=== PATIENT | male | born 1945 | race Caucasian/White ===

== ENCOUNTER 2019-03-04 23:04 | Emergency (ER) | payer MEDICARE, BC ==
[2019-03-05 00:01] LABS: Bilirubin Negative (Negative); Blood, Urine Negative (Negative); Clarity CLEAR (Clear); Glucose, Urine (Dipstick) >=1000 mg/dL (Negative); Leukocyte Negative (Negative); Nitrite Negative (Negative); Protein, Urine (Dipstick) Negative (Neg-Trace); Specific Gravity, Urine 1.035 (1.002-1.036)
[2019-03-05] MEDS ORDERED: Morphine 4 MG/ML VIAL ONE (00:34)
[2019-03-05 01:11] LABS: ALT (SGPT) 14 U/L (8-55); AST (SGOT) 12 U/L (5-34); Albumin 4.1 g/dL (3.4-4.8); Alkaline Phosphatase 67 U/L (40-150); Anion Gap 11 mmol/L (10-20); BUN (Urea Nitrogen) 29 mg/dL (8.4-25.7); Bilirubin, Total 0.5 mg/dL (0.2-1.2); Calc. Creatinine Clearance 0 mL/min (70-130); Calcium 9.8 mg/dL (7.8-10.44); Carbon Dioxide 25 mmol/L (23-31); Chloride 103 mmol/L (98-107); Estimated GFR-MDRD 44; Globulin 2.9 g/dL (2.4-3.5); Glucose 253 mg/dL (83-110); Potassium 4.4 mmol/L (3.5-5.1); Sodium 135 mmol/L (136-145)
[2019-03-05] MEDS ORDERED: Ketorolac Tromethamine 30 MG/ML VIAL ONE (01:58)
[2019-03-05] MEDS ORDERED: Diazepam 5 MG TAB ONE (02:01)
--- NOTE | 2019-03-05 07:46 | CT ---
PRELIMINARY REPORT/[facility]/EMERGENCY AFTER HOURS PROCEDURE EXAM: CT Abdomen and Pelvis With Contrast EXAM DATE/TIME: 03/05/2019 1:18 AM CLINICAL HISTORY: 73 years old, male; Patient HX: Er 13. , 73m presenting with right lower back pain x 1 month with rad iation down right leg. TECHNIQUE: Imaging protocol: Axial computed tomography images of the abdomen and pelvis with intravenous contras t. Coronal and sagittal reformatted images were created and reviewed. COMPARISON: No relevant prior studies available. FINDINGS: Lungs: There is bibasilar subsegmental atelectasis or parenchymal scarring. ABDOMEN: Liver: There are a few calcified hepatic granulomata. There is mild hepatomegaly. Gallbladder and bile ducts: Normal. No calcified stones. No ductal dilation. Pancreas: Normal. No ductal dilation. Spleen: Normal. No splenomegaly. Adrenals: Normal. No mass. Kidneys and ureters: Normal. No hydronephrosis. Stomach and bowel: There is colonic diverticulosis without evidence for acute diverticulitis. Appendix: The appendix is unremarkable and seen best on axial image 60 of series 2. PELVIS: Bladder: Unremarkable as visualized. Reproductive: There are prostate gland calcifications. ABDOMEN and PELVIS: Intraperitoneal space: Normal. No free air. No significant fluid collection. Bones/joints: There is diffuse osteopenia and there are degenerative changes of the spine. Soft tissues: Unremarkable. Vasculature: There are atherosclerotic aortic and iliac and femoral artery calcifications. Lymph nodes: Normal. No enlarged lymph nodes. IMPRESSION: There is colonic diverticulosis without evidence for acute diverticulitis. Thank you for allowing us to participate in the care of your patient. Dictated and Authenticated by: Oneil Dickerson MD 03/05/2019 2:46 AM Central Time ([place] & [place]) FINAL REPORT CT ABDOMEN AND PELVIS WITH IV CONTRAST AND CT LUMBAR SPINE WITHOUT CONTRAST PERFORMED ON AN EMERGENCY BASIS: 03/05/2019 0120 HOURS HISTORY: Abdomen pain with low back pain. FINDINGS: I agree with the preliminary report by Dr. Dickerson from [facility]. Prominent atherosclerosis. No acute vascular abnormalities are apparent. Diverticulosis without jessica dence of diverticulitis. No acute compression fracture of the lumbar spine evident. Degenerative changes are pronounced. Napoleon tral canal and foraminal stenoses, most pronounced at the L3-L4 level. Severe stenosis also involves the left neural foramen, at the L4-L5 level. CODE QA
== END 2019-03-05 03:00 | disposition home or self-care (01) ==
LOC: ERS 23:04
DX: M54.41 Lumbago with sciatica, right side (principal); E11.9 Type 2 diabetes mellitus without complications; I10 Essential (primary) hypertension; E03.9 Hypothyroidism, unspecified; E78.00 Pure hypercholesterolemia, unspecified; F32.9 Major depressive disorder, single episode, unspecified; Z79.82 Long term (current) use of aspirin; Z79.4 Long term (current) use of insulin; Z79.02 Long term (current) use of antithrombotics/antiplatelets; Z79.899 Other long term (current) drug therapy
CPT/HCPCS: 74177; 80053; 81003; 96374; 96375; J1885; J2270

== ENCOUNTER 2021-03-02 14:43 | Inpatient (IN) | payer MEDICARE, BC ==
[2021-03-02 15:22] LABS: #Lymphocytes 1.8 thou/uL (1.20-3.40); #Monocytes 0.7 thou/uL (0.11-0.59); #Neutrophils 7.5 thou/uL (1.40-6.50); %Eosinophils 0.4 % (0.0-10.0); %Lymphocytes 17.8 % (21.0-51.0); %Monocytes 6.9 % (0.0-10.0); Hemoglobin 13.7 g/dL (14.0-18.0); Mean Corpuscular HGB CONC 32.3 g/dL (32.0-36.0); Mean Corpuscular Volume 92.8 fL (78.0-98.0); Mean Platelet Volume 8.7 fL (7.4-10.4); Platelet Count 274 thou/uL (130-400); RBC Distribution Width 13.7 % (11.5-14.5); Red Blood Cell (RBC) Count 4.57 mill/uL (4.70-6.10)
[2021-03-02 15:36] LABS: ALT (SGPT) 17 U/L (8-55); AST (SGOT) 14 U/L (5-34); Albumin 4.1 g/dL (3.4-4.8); Alkaline Phosphatase 76 U/L (40-110); Anion Gap 21 mmol/L (10-20); BUN (Urea Nitrogen) 39 mg/dL (8.4-25.7); Bilirubin, Total 0.4 mg/dL (0.2-1.2); Calc. Creatinine Clearance 0 mL/min (70-130); Calcium 10.4 mg/dL (7.8-10.44); Carbon Dioxide 27 mmol/L (23-31); Chloride 93 mmol/L (98-107); Globulin 3.8 g/dL (2.4-3.5); Glucose 519 mg/dL (83-110); Potassium 4.9 mmol/L (3.5-5.1); Protein, Total 7.9 g/dL (5.8-8.1); Sodium 136 mmol/L (136-145)
[2021-03-02] MEDS ORDERED: Azithromycin 500 MG VIAL ONE (18:31)
[2021-03-02] MEDS ORDERED: Dextrose 5% in Water 1,000 ML IV PRN (18:57)
[2021-03-02] MEDS ORDERED: Dextrose 50% Abboject 50 ML SYRINGE SLOW IVP PRN (18:57)
[2021-03-02] MEDS ORDERED: Doxycycline 100 MG CAP PO SCH (19:00)
[2021-03-02] MEDS ORDERED: Enoxaparin Sodium 40 MG/0.4 ML SYRINGE SC SCH (19:00)
[2021-03-02 19:11] LABS: Lactic Acid 2.1 mmol/L (0.5-2.2)
[2021-03-02 19:34] LABS: Hemoglobin A1c 8.6 % (4.0-6.0)
[2021-03-02 19:44] LABS: Actual Bicarbonate (HCO3v) 30 mEq/L (22-28); Analyzer IN Cardio ER; Base Excess 4.8 mEq/L (-2.0 to +3.0); Calcium, Ionized (venous) 1.13 mmol/L (1.16-1.32); Chloride (VBG) 98 mmol/L (98-106); Potassium (VBG) 4.51 mmol/L (3.70-5.30); pH (venous) 7.42 (7.32-7.43)
[2021-03-02 19:45] LABS: Troponin I Less than 0.010 ng/mL (< 0.028)
[2021-03-02 19:47] LABS: Cardiac Risk 5.4 (Less than 4.5)
[2021-03-02] MEDS ORDERED: Enoxaparin Sodium 40 MG/0.4 ML SYRINGE ONE (21:46)
[2021-03-02] MEDS ORDERED: methylPREDNISolone Sod Succ 40 MG VIAL ONE (21:46)
[2021-03-02] MEDS: methylPREDNISolone Sod Succ 40 MG VIAL IVP SCH (21:57)
[2021-03-02 22:00] VITALS: BMI 31.7
[2021-03-02 22:21] LABS: Troponin I Less than 0.010 ng/mL (< 0.028)
[2021-03-03] MEDS ORDERED: methylPREDNISolone Sod Succ 40 MG VIAL ONE ×2 (02:47→08:40)
[2021-03-03] MEDS: methylPREDNISolone Sod Succ 40 MG VIAL IVP SCH ×4 (02:53→20:21)
[2021-03-03] MEDS ORDERED: Aspirin Chewable 81 MG TAB ONE (08:39)
[2021-03-03] MEDS ORDERED: Lisinopril 10 MG TAB ONE (08:39)
[2021-03-03] MEDS ORDERED: Clopidogrel Bisulfate 75 MG TAB ONE (08:39)
[2021-03-03] MEDS ORDERED: Enoxaparin Sodium 40 MG/0.4 ML SYRINGE ONE (08:40)
[2021-03-03] MEDS: Clopidogrel Bisulfate 75 MG TAB PO SCH (09:15)
[2021-03-03] MEDS: metFORMIN 500 MG TAB PO SCH ×2 (09:15→16:35)
[2021-03-03] MEDS: Aspirin 81 mg Enteric Coated Tablet PO SCH (09:15)
[2021-03-03] MEDS: Lisinopril 10 MG TAB PO SCH (09:16)
[2021-03-03] MEDS: Enoxaparin Sodium 40 MG/0.4 ML SYRINGE SC SCH (09:16)
[2021-03-03] MEDS ORDERED: HumaLOG 300 UNITS/3 ML VIAL ONE (09:22)
[2021-03-03] MEDS: HumaLOG 300 UNITS/3 ML VIAL SC PRN ×2 (09:24→16:34)
[2021-03-03] MEDS: Lantus 1000 UNITS/10 ML VIAL SC SCH (09:25)
[2021-03-03 09:31] LABS: Anion Gap 15 mmol/L (10-20); BUN (Urea Nitrogen) 36 mg/dL (8.4-25.7); Calc. Creatinine Clearance 53 mL/min (70-130); Calcium 9.8 mg/dL (7.8-10.44); Carbon Dioxide 28 mmol/L (23-31); Chloride 96 mmol/L (98-107); Glucose 440 mg/dL (83-110); Potassium 4.9 mmol/L (3.5-5.1); Sodium 134 mmol/L (136-145)
[2021-03-03 11:37] LABS: SARS-CoV-2 PCR by NAA Not Detected (NotDetected)
[2021-03-03] MEDS: Acetylcysteine 20% 200 MG/ML 30 ML VIAL INH SCH ×2 (15:00→19:32)
[2021-03-03] MEDS ORDERED: HumaLOG 300 UNITS/3 ML VIAL SC PRN (20:49)
[2021-03-03] MEDS ORDERED: Rosuvastatin 10 MG TAB PO SCH (21:00)
[2021-03-04] MEDS: methylPREDNISolone Sod Succ 40 MG VIAL IVP SCH ×2 (01:43→08:25)
[2021-03-04] MEDS: Acetylcysteine 20% 200 MG/ML 30 ML VIAL INH SCH ×2 (02:11→07:27)
[2021-03-04] MEDS ORDERED: Levothyroxine Sodium 25 MCG TAB PO SCH (06:00)
[2021-03-04] MEDS: HumaLOG 300 UNITS/3 ML VIAL SC PRN ×2 (06:16→11:24)
[2021-03-04 08:05] LABS: Anion Gap 12 mmol/L (10-20); BUN (Urea Nitrogen) 35 mg/dL (8.4-25.7); Calc. Creatinine Clearance 60 mL/min (70-130); Calcium 9.7 mg/dL (7.8-10.44); Carbon Dioxide 29 mmol/L (23-31); Chloride 99 mmol/L (98-107); Glucose 264 mg/dL (83-110); Potassium 4.8 mmol/L (3.5-5.1); Sodium 135 mmol/L (136-145)
[2021-03-04] MEDS: metFORMIN 500 MG TAB PO SCH (08:25)
[2021-03-04] MEDS: Aspirin 81 mg Enteric Coated Tablet PO SCH (08:25)
[2021-03-04] MEDS: Lisinopril 10 MG TAB PO SCH (08:25)
[2021-03-04] MEDS: Clopidogrel Bisulfate 75 MG TAB PO SCH (08:25)
[2021-03-04] MEDS: Lantus 1000 UNITS/10 ML VIAL SC SCH (08:26)
[2021-03-04] MEDS: Enoxaparin Sodium 40 MG/0.4 ML SYRINGE SC SCH (08:26)
[2021-03-04 11:33] VITALS: BP 159/71; TEMP 97.6
== END 2021-03-04 12:01 | disposition home health service (06) | DRG 189 ==
LOC: ERS 14:43 → ERHOLD 18:30 → 2NO 03-03 13:24
PROVIDERS: ADMIT Internal Medicine; ATTEND Internal Medicine
DX: J96.20 Acute and chronic respiratory failure, unspecified whether with hypoxia or hypercapnia (principal); I13.0 Hypertensive heart and chronic kidney disease with heart failure and stage 1 through stage 4 chronic kidney disease, or unspecified chronic kidney disease; Z20.822 Contact with and (suspected) exposure to COVID-19; J44.1 Chronic obstructive pulmonary disease with (acute) exacerbation; E66.01 Morbid (severe) obesity due to excess calories; E11.22 Type 2 diabetes mellitus with diabetic chronic kidney disease; E11.65 Type 2 diabetes mellitus with hyperglycemia; E78.00 Pure hypercholesterolemia, unspecified; E03.9 Hypothyroidism, unspecified; I50.9 Heart failure, unspecified; F32.9 Major depressive disorder, single episode, unspecified; I25.10 Atherosclerotic heart disease of native coronary artery without angina pectoris; E78.5 Hyperlipidemia, unspecified; N18.30 Chronic kidney disease, stage 3 unspecified; Z86.74 Personal history of sudden cardiac arrest; Z95.1 Presence of aortocoronary bypass graft; Z88.0 Allergy status to penicillin; Z79.82 Long term (current) use of aspirin; Z79.890 Hormone replacement therapy; Z79.4 Long term (current) use of insulin; Z79.899 Other long term (current) drug therapy; Z87.891 Personal history of nicotine dependence; Z99.81 Dependence on supplemental oxygen; Z68.31 Body mass index [BMI] 31.0-31.9, adult
CPT/HCPCS: 36415; 36416; 71045; 80048; 80053; 80061; 82010; 82805; 83036; 83605; 83880; 84484; 85025; 87040; 87070; 87205; 87631; 87804; 94640; 94667; 94668; 96365; 96366; J0132; J0456; J1650; J1815; J1956; J2920; J7620; U0003; U0005

== ENCOUNTER 2021-09-11 14:50 | Emergency (ER) | payer MEDICARE, BC ==
[2021-09-11] MEDS ORDERED: Ondansetron PF 4 MG/2 ML Vial ONE (16:51)
[2021-09-11] MEDS ORDERED: Morphine 4 MG/ML VIAL ONE (16:51)
[2021-09-11 17:25] LABS: #Basophils 0.1 thou/uL (0.0-0.2); #Eosinphils 0.2 thou/uL (0.0-0.7); #Lymphocytes 1.9 thou/uL (1.20-3.40); #Monocytes 0.9 thou/uL (0.11-0.59); #Neutrophils 5.2 thou/uL (1.40-6.50); %Basophils 0.6 % (0.0-1.0); %Lymphocytes 23.1 % (21.0-51.0); %Monocytes 10.8 % (0.0-10.0); %Neutrophils 63.4 % (42.0-75.0); Hemoglobin 12.4 g/dL (14.0-18.0); Mean Corpuscular HGB CONC 34.1 g/dL (32.0-36.0); Mean Corpuscular Hemoglobin 31.1 pg (27.0-31.0); Mean Corpuscular Volume 91.4 fL (78.0-98.0); Mean Platelet Volume 7.9 fL (7.4-10.4); Platelet Count 219 thou/uL (130-400); RBC Distribution Width 13.6 % (11.5-14.5); Red Blood Cell (RBC) Count 3.98 mill/uL (4.70-6.10); White Blood Cell (WBC) Count 8.1 thou/uL (4.8-10.8)
[2021-09-11 17:29] LABS: Bilirubin Negative (Negative); Blood, Urine Negative (Negative); Clarity Clear (Clear); Glucose, Urine (Dipstick) Greater than 1000 mg/dL (Negative); Ketone, Urine Negative (Negative); Leukocyte Negative Leu/uL (Negative); Nitrite Negative (Negative); Protein, Urine (Dipstick) Negative (Neg-Trace); Specific Gravity, Urine 1.024 (1.002-1.036); Urobilinogen Normal mg/dL (Less than 2)
[2021-09-11 17:49] LABS: ALT (SGPT) 42 U/L (8-55); AST (SGOT) 37 U/L (5-34); Albumin 4.1 g/dL (3.4-4.8); Alkaline Phosphatase 64 U/L (40-110); Anion Gap 11 mmol/L (10-20); BUN (Urea Nitrogen) 35 mg/dL (8.4-25.7); Bilirubin, Total 0.3 mg/dL (0.2-1.2); Calc. Creatinine Clearance 0 mL/min (70-130); Calcium 9.9 mg/dL (7.8-10.44); Carbon Dioxide 30 mmol/L (23-31); Chloride 100 mmol/L (98-107); Globulin 3.1 g/dL (2.4-3.5); Glucose 104 mg/dL (83-110); Potassium 4.1 mmol/L (3.5-5.1); Protein, Total 7.2 g/dL (5.8-8.1); Sodium 137 mmol/L (136-145)
== END 2021-09-11 18:30 | disposition home or self-care (01) ==
LOC: ERS 14:50
DX: R10.9 Unspecified abdominal pain (principal)
CPT/HCPCS: 74176; 80053; 81003; 85025; 96374; 96375; J2270; J2405

== ENCOUNTER 2022-04-25 10:51 | Emergency (ER) | payer MEDICARE, BC ==
[2022-04-25 11:39] LABS: #Eosinphils 0.2 thou/uL (0.0-0.7); #Lymphocytes 1.9 thou/uL (1.20-3.40); #Monocytes 0.7 thou/uL (0.11-0.59); #Neutrophils 5.7 thou/uL (1.40-6.50); %Basophils 0.3 % (0.0-1.0); %Lymphocytes 22.3 % (21.0-51.0); %Monocytes 8.7 % (0.0-10.0); %Neutrophils 66.9 % (42.0-75.0); Hemoglobin 11.9 g/dL (14.0-18.0); Mean Corpuscular HGB CONC 32.8 g/dL (32.0-36.0); Mean Corpuscular Hemoglobin 29.7 pg (27.0-31.0); Mean Corpuscular Volume 90.5 fL (78.0-98.0); Mean Platelet Volume 8.7 fL (7.4-10.4); Platelet Count 204 thou/uL (130-400); RBC Distribution Width 13.5 % (11.5-14.5); Red Blood Cell (RBC) Count 4.02 mill/uL (4.70-6.10); White Blood Cell (WBC) Count 8.5 thou/uL (4.8-10.8)
[2022-04-25 12:09] LABS: ALT (SGPT) 34 U/L (8-55); AST (SGOT) 28 U/L (5-34); Albumin 3.8 g/dL (3.4-4.8); Alkaline Phosphatase 97 U/L (40-110); Anion Gap 16 mmol/L (10-20); BUN (Urea Nitrogen) 29 mg/dL (8.4-25.7); Bilirubin, Total 0.4 mg/dL (0.2-1.2); Calc. Creatinine Clearance 0 mL/min (70-130); Calcium 9.3 mg/dL (7.8-10.44); Carbon Dioxide 23 mmol/L (23-31); Chloride 102 mmol/L (98-107); Estimated GFR 45; Glucose 294 mg/dL (83-110); Potassium 3.8 mmol/L (3.5-5.1); Protein, Total 6.8 g/dL (5.8-8.1); Sodium 137 mmol/L (136-145)
[2022-04-25 12:47] LABS: Magnesium 1.4 mg/dL (1.6-2.6)
[2022-04-25] MEDS ORDERED: Magnesium 2 GM/50 ML BAG (IN WATER) ONE (14:17)
== END 2022-04-25 18:21 | disposition home or self-care (01) ==
LOC: ERS 10:51
DX: E11.22 Type 2 diabetes mellitus with diabetic chronic kidney disease (principal); N18.9 Chronic kidney disease, unspecified; E83.42 Hypomagnesemia; E03.9 Hypothyroidism, unspecified; E78.5 Hyperlipidemia, unspecified; J44.9 Chronic obstructive pulmonary disease, unspecified; R53.1 Weakness
CPT/HCPCS: 36415; 71045; 80053; 83735; 84443; 85025; 93005; 96365; 96366; J3475